=== PATIENT | male | born 2000 | race Caucasian/White ===

== ENCOUNTER 2019-04-18 00:26 | Emergency (ER) | payer OTHER ==
[~2019-04-18] VITALS: Ht 175.3 cm; Wt 72.6 kg
== END 2019-04-18 03:38 | disposition home or self-care (01) ==
LOC: ER 00:26
DX: M25.561 Pain in right knee (principal); M54.2 Cervicalgia; K08.89 Other specified disorders of teeth and supporting structures; V89.2XXA Person injured in unspecified motor-vehicle accident, traffic, initial encounter
CPT/HCPCS: 99283